=== PATIENT | female | born 1960 | race African-American/Black ===

== ENCOUNTER 2017-07-09 19:53 | Emergency (ER) | payer BC ==
[~2017-07-09] VITALS: Ht 165.1 cm; Wt 100.7 kg
--- NOTE | 2017-07-09 20:35 | NUR ---
Patient eloped from facility. Stated she didnt want to be seen anymore, and would go to her PCP. ER physician notified. Pt left in stable condition.
== END 2017-07-09 23:04 | disposition left against medical advice (07) ==
LOC: ER 19:56
DX: T18.9XXA Foreign body of alimentary tract, part unspecified, initial encounter (principal); J45.909 Unspecified asthma, uncomplicated; Z88.0 Allergy status to penicillin
CPT/HCPCS: A4663